=== PATIENT | male | born 1950 | race American Indian/Alaskan Native ===

== ENCOUNTER 2021-02-23 14:10 | Inpatient (IN) | payer OTHER, MEDICARE ==
--- NOTE | 2021-02-23 14:21 | Emergency Department Report ---
ED Neuro Deficit HPI - General Stated Complaint: POSS STROKE Time Seen by Provider: 02/23/21 14:16 - History of Present Illness Initial Comments: Patient was brought in by ambulance for a stroke alert. He was at home. He was sitting outside. Family noticed that he was sitting in the yard and was confused. He was looking downward. They noticed that he had slurred speech. EMS was called. EMS states that the patient was clearly altered with slurred speech at that time. He could not even complete features of an NIH score. During transport, the patient improved. Upon arrival, his symptoms have abated. EMS reports his NIH score is 0 at this time. They did report that he was initially hypertensive but his blood pressures also improved. Patient actually has no recollection of the events. He states that he just felt weak. He states that he also got dizzy. There was no head trauma. No chest pain. There is no shortness of breath. He does not feel weak or dizzy at this time. He has never had symptoms of this nature before. - Related Data Allergies/Adverse Reactions: Allergies Allergy/AdvReac Type Severity Reaction Status Date / Time No Known Allergies Allergy Unverified 02/23/21 15:13 ED Review of Systems ROS: Stated complaint: POSS STROKE Other details as noted in HPI Comment: All other systems reviewed and negative Constitutional: denies: fever Eyes: denies: eye pain ENT: denies: throat pain Respiratory: denies: cough Cardiovascular: denies: chest pain Endocrine: denies: unexplained weight loss Gastrointestinal: denies: abdominal pain Genitourinary: denies: dysuria Musculoskeletal: denies: back pain Neurological: as per HPI. denies: headache Hematological/Lymphatic: denies: easy bruising ED Past Medical Hx - Family History Family history: hypertension ED Neuro Physical Exam - General Limitations: No Limitations, Other ( Pulse ox was noted per EMS and normal. Patient was not hypoxic.) General appearance: alert, in no apparent distress Suspected Stroke: No - Head Head exam: Present: atraumatic, normocephalic, normal inspection - Eye Eye exam: Present: normal appearance, PERRL, EOMI. Absent: scleral icterus - ENT ENT exam: Present: normal exam, normal orophraynx, mucous membranes moist, normal external ear exam - Neck Neck exam: Present: normal inspection. Absent: tenderness, meningismus - Respiratory Respiratory exam: Present: normal lung sounds bilaterally. Absent: respiratory distress - Cardiovascular Cardiovascular Exam: Present: regular rate, normal rhythm - GI/Abdominal GI/Abdominal exam: Present: soft, other ( Ventral hernia is noted there is nontender and easily reducible). Absent: distended, tenderness - Extremities Exam Extremities exam: Present: normal capillary refill. Absent: pedal edema - Back Exam Back exam: Absent: CVA tenderness (R), CVA tenderness (L) - Neurological Exam Neurological exam: Present: alert, oriented X3, CN II-XII intact, reflexes normal, other ( NIH score is 0.). Absent: motor sensory deficit - NIHSS Assessment Interval: Baseline 1a. Level of Consciousness: alert/keenly responsive 1b. LOC Questions: answers both correctly 1c. LOC Commands: performs tasks correctly 2. Best Gaze: normal 3. Visual: no visual loss 4. Facial Palsy: normal symmetrical movement 5b. Motor Arm Right: no drift 5a. Motor Arm Left: no drift 6a. Motor Leg Left: no drift 6b. Motor Leg Right: no drift 7. Limb Ataxia: absent 8. Sensory: normal 9. Best Language: no aphasia 10. Dysarthria: normal 11. Extinction/Inattention: no abnormality Total Score: 0 Stroke Severity: No Stroke Symptoms - Psychiatric Psychiatric exam: Present: normal affect, normal mood - Skin Skin exam: Present: warm, dry ED Course Vital Signs 02/23/21 02/23/21 02/23/21 14:56 15:01 15:15 Temperature Pulse Rate 71 81 74 Respiratory 14 14 Rate Blood Pressure 113/61 115/65 O2 Sat by Pulse 98 95 Oximetry 02/23/21 02/23/21 15:20 15:22 Temperature 97.6 F Pulse Rate Respiratory Rate Blood Pressure O2 Sat by Pulse 98 Oximetry - Reevaluation(s) Reevaluation #1: 02/23/21 14:18 1405-EMS was met upon arrival. Patient has no neurologic deficit at this time. He would not be a candidate for thrombolytic therapy as his symptoms have completely resolved and his NIH score is 0. He was still taken urgently to CT. Reevaluation #2: 02/23/21 14:41 the water treatment technician called requesting a CT angiogram. She verified that this was req uested by the neurologist. Order was placed. Clinically, patient does not have symptoms consistent with large vessel occlusion. Reevaluation #3: 02/23/21 15:40 Case was discussed with the neurologist and Dr. Limon. Plan is for observation admission and further risk stratification and evaluation. There is no evidence of bleed. - Lab Data Result diagrams: 02/23/21 15:04 Lab Results 02/23/21 Range/Units 15:04 WBC 3.8 L (4.5-11.0) K/mm3 RBC 3.34 L (3.65-5.03) M/mm3 Hgb 10.9 L (11.8-15.2) gm/dl Hct 33.4 L (35.5-45.6) % MCV 100 H (84-94) fl MCH 33 H (28-32) pg MCHC 33 (32-34) % RDW 13.7 (13.2-15.2) % Plt Count 98 L (140-440) K/mm3 Lymph % (Auto) 25.9 (13.4-35.0) % [place] % (Auto) 12.6 H (0.0-7.3) % Eos % (Auto) 0.4 (0.0-4.3) % Baso % (Auto) 0.2 (0.0-1.8) % Lymph # (Auto) 1.0 L (1.2-5.4) K/mm3 [place] # (Auto) 0.5 (0.0-0.8) K/mm3 Eos # (Auto) 0.0 (0.0-0.4) K/mm3 Baso # (Auto) 0.0 (0.0-0.1) K/mm3 Seg Neutrophils % 60.9 (40.0-70.0) % Seg Neutrophils # 2.3 (1.8-7.7) K/mm3 - EKG Data -: EKG Interpreted by Ca EKG shows normal: sinus rhythm Rate: normal Interpretation: no acute changes 02/23/21 15:40 Patient has normal intervals without evidence of ectopy or dysrhythmia. There is no evidence of STEMI. - Radiology Data Radiology results: report reviewed - Medical Decision Making Patient presented with strokelike symptoms. He had resolution of symptoms which would be consistent with TIA. Case has been discussed with the neurologist on-call as well as the hospitalist. They agreed for further observation and restratification. There is no evidence of subdural or epidural hematomas. Patient does not have any evidence of metabolic derangement. Critical Care Time: No Critical care attestation.: If time is entered above; I have spent that time in minutes in the direct care of this critically ill patient, excluding procedure time. ED Disposition Clinical Impression: TIA (transient ischemic attack) Disposition: 09 ADMITTED INPATIENT Is pt being admited?: Yes Does the pt Need Aspirin: No Condition: Stable
--- NOTE | 2021-02-23 15:04 | Consultation ---
History of Present Illness Consult date: 02/23/21 Medications and Allergies Active Meds: Active Medications Sodium Chloride (Nacl 0.9% 1000 Ml) 1,000 mls @ 999 mls/hr IV BOLUS ONE Stop: 02/23/21 15:16 Assessment and Plan [facility] Consult Note # Demographics Consult Type: Acute Stroke Level 1 (0-4.5 hrs) Patient Location: Emergency Room First Name: Jones Last Name: Monica Date of : 1950 Age: 70 Gender: Male Facility: [facility] Time of Initial Page ( Time): 02/23/2021, 14:12 Time of Return Call ( Time): 02/23/2021, 14:13 # HPI History: 70M sat down after seeming normal, then noted to have blank stare, slurred speech. Upon EMS arrival, BP elevated and normal glucose. Speech and other symptoms resolved en route per EMS. He reports having headache, took aleve, then still with headache. Denies prior similar. Denies recent illness or injury. Feels back to normal. # Scores Time of exam and NIHSS ( Time): 02/23/2021, 15:01 Level of Consciousness 1a: [0] = Alert; keenly responsive LOC Questions 1b: [0] = Answers both questions correctly LOC Commands 1c: [0] = Performs both tasks correctly Best Gaze 2: [0] = Normal Visual 3: [0] = No visual loss Facial Palsy 4: [0] = Normal symmetrical movements Motor Arm Left 5a: [0] = No drift Motor Arm Right 5b: [0] = No drift Motor Leg Left 6a: [0] = No drift Motor Leg Right 6b: [0] = No drift Limb Ataxia 7: [0] = Absent Sensory 8: [0] = Normal Best Language 9: [0] = No aphasia Dysarthria 10: [0] = Normal Extinction and Inattention 11: [0] = No abnormality NIHSS Total: 0 # PMH-FH-SH Past Medical History: hypertension # Data Head CT: no bleed preliminarily reviewed by me, please refer to radiology read for official reading # Assessment Impression: Altered Mental Status Transient Ischemic Attack versus seizure, other. The lack of memory for the event favors seizure or syncope over stroke. # Plan Thrombolytic/Intervention: NOT IV Thrombolysis or IA Intervention candidate Thrombolytic Exclusion (< 3 hour window): non-disabling deficit Intraarterial Exclusion: non-disabling Imaging: (urgency: STAT): MRI Brain with AND without contrast Diagnostic Test: EEG Medication: aspirin 81 mg daily Other: I have discussed my recommendations with the referring provider Additional Recommendations: Seizure precautions pending further evaluation, no driving until released by medical provider. Disposition: admit # Logistics Telemedicine: Interactive 2 way audio and visual telecommunication technology was utilized during this visit
--- NOTE | 2021-02-23 15:11 | Cat Scan Report ---
CT head/brain wo con INDICATION: Stroke symptoms. TECHNIQUE: All CT scans at this location are performed using CT dose reduction for ALARA by means of automated e xposure control. COMPARISON: None available. FINDINGS: There is no evidence of hemorrhage, hydrocephalus, brain edema, or mass effect/mass lesion. There is mild global brain atrophy and mild cerebral white matter hypoattenuation suggesting chronic small ves edgar ischemic change. There is no appreciable acute infarct. IMPRESSION: 1. No acute hemorrhage or appreciable acute infarct. Signer Name: Garrick Yanes MD Signed: 02/23/2021 3:07 PM Workstation Name: [id number]
[2021-02-23 15:24] LABS: Basophils % (Auto) 0.2 % (0.0-1.8); Eosinophils % (Auto) 0.4 % (0.0-4.3); Hematocrit 33.4 % (35.5-45.6); Hemoglobin 10.9 gm/dl (11.8-15.2); Lymphocytes % (Auto) 25.9 % (13.4-35.0); Mean Corpuscular HGB Conc 33 % (32-34); Mean Corpuscular Volume 100 fl (84-94); Monocytes # (Auto) 0.5 K/mm3 (0.0-0.8); Monocytes % (Auto) 12.6 % (0.0-7.3); Red Blood Count 3.34 M/mm3 (3.65-5.03); Red Cell Distribution Width 13.7 % (13.2-15.2)
[2021-02-23 15:25] LABS: Platelet Count 98 K/mm3 (140-440)
--- NOTE | 2021-02-23 15:27 | Cat Scan Report ---
CTA HEAD AND NECK WITH CONTRAST HISTORY: Transient ischemic attack COMPARISON: None. TECHNIQUE: All CT scans at this location are performed using CT dose reduction for ALARA by means of automated exposure control.. 3-D/MIP reformats postprocessed. Percentage stenosis is determined by d irect quantitative measurements of diseased internal carotid artery diameter compared with normal dis sally internal carotid artery reference segments or by criteria similar to NASCET where applicable. CONTRAST: 100 ml of Omnipaque 350 FINDINGS: CT HEAD: BRAIN / INTRACRANIAL CONTENTS: No acute hemorrhage, mass effect, midline shift, or hydrocephalus. No appreciable acute large territorial or lacunar infarct. ORBITS: No significant abnormality of visualized orbits. SINUSES / MASTOIDS: No significant abnormality of visualized sinuses and mastoid air cells. CTA HEAD: Intracranial vertebral arteries: Mild atherosclerotic calcifications without significant stenosis. Basilar artery: Mild atherosclerotic calcifications without significant stenosis. Posterior cerebral arteries: No significant abnormality. Intracranial internal carotid arteries: Mild atherosclerotic calcifications without significant steno sis. Anterior cerebral arteries: No significant abnormality. Middle cerebral arteries: No significant abnormality. Dural venous sinuses:Not optimally opacified. No significant abnormality. CTA NECK: Aortic arch: There is 4 vessel branching pattern of the aortic arch. Cervical vertebral arteries: Scattered atherosclerotic calcifications without significant stenosis or acute abnormality. Common carotid arteries: Mild atherosclerotic plaque without significant stenosis. Cervical internal carotid arteries: Atherosclerotic plaque in the proximal cervical internal carotid arteries without flow-limiting stenosis. Additional findings: None. IMPRESSION: 1. No flow-limiting stenosis or large vessel occlusion in the neck or intracranial arteries. Signer Name: Garrick Yanes MD Signed: 02/23/2021 3:22 PM Workstation Name: [id number]
[2021-02-23 15:40] LABS: Calcium 8.6 mg/dL (8.4-10.2)
[2021-02-23 15:46] LABS: INR 1.12 (0.87-1.13)
[2021-02-23 15:47] LABS: Partial Thromboplastin Time 29.4 Sec. (24.2-36.6)
[2021-02-23 15:53] LABS: Thrombin Time 18.1 Sec. (15.1-19.6)
[2021-02-23] MEDS ORDERED: SODIUM CHLORIDE 0.9% 1000 ML 1,000 ML IV ONE (16:00)
[2021-02-23] MEDS ORDERED: METOCLOPRAMIDE 10 MG/2 ML INJ IV PRN (21:01)
[2021-02-23] MEDS ORDERED: HYDROmorphone 1 MG/1 ML INJ IV PRN (21:01)
[2021-02-23] MEDS ORDERED: ACETAMINOPHEN 325 MG TAB PO PRN (21:01)
[2021-02-23] MEDS ORDERED: ONDANSETRON 4 MG/2 ML INJ IV PRN (21:01)
[2021-02-23] MEDS ORDERED: oxyCODONE /ACETAMINOPHEN 5-325MG TAB PO PRN (21:01)
--- NOTE | 2021-02-23 21:01 | History and Physical Report ---
History of Present Illness Date of examination: 02/23/21 Date of admission: 02/23/21 Chief complaint: Note speech and left-sided weakness which lasted for 1 hour History of present illness: 70-year-old -[place] male, very cooperative during my examination appar ently was sitting in the ER and became confused. The family noticed slurred speech and left-sided weakness involving both left upper and left lower extremities. EMS was called. As per EMS patient had slurred speech and left- sided weakness. During transport patient improved. More alert and alert Oriented and also able to move left upper and left lower extremity. During my examination patient was able to tell where he is and able to move all 4 extremities and had a clear speech. No chest pain. No exposure to Covid. Review of Systems ROS: Stated complaint: POSS STROKE Other details as noted in HPI Comment: All other systems reviewed and negative Constitutional: denies: fever Eyes: denies: eye pain ENT: denies: throat pain Respiratory: denies: cough Cardiovascular: denies: chest pain Endocrine: denies: unexplained weight loss Gastrointestinal: denies: abdominal pain Genitourinary: denies: dysuria Musculoskeletal: denies: back pain Neurological: as per HPI. denies: headache Hematological/Lymphatic: denies: easy bruising Past History Past Medical History: hypertension Past Surgical History: No surgical history Social history: lives with family, full code Family history: hypertension Medications and Allergies Allergies Allergy/AdvReac Type Severity Reaction Status Date / Time No Known Allergies Allergy Unverified 02/23/21 15:13 Home Medications Medication Instructions Recorded Confirmed Last Taken Type No Known Home Medications [No 02/23/21 02/23/21 Unknown History Reported Home Medications] Exam - Constitutional Vitals: Temp Pulse Resp BP Pulse Ox 97.6 F 74 14 113/68 97 02/23/21 15:20 02/23/21 15:15 02/23/21 15:15 02/23/21 20:01 02/23/21 20:01 General appearance: Present: no acute distress, well-nourished - EENT Eyes: Present: PERRL ENT: hearing intact, clear oral mucosa - Neck Neck: Present: supple, normal ROM - Respiratory Respiratory effort: normal Respiratory: bilateral: CTA - Cardiovascular Heart rate: 78 Rhythm: regular Heart Sounds: Present: S1 & S2. Absent: rub, click - Extremities Extremities: pulses symmetrical, No edema Peripheral Pulses: within normal limits - Abdominal General gastrointestinal: Present: soft, non-tender, non-distended, normal bowel sounds Male genitourinary: Present: normal - Rectal Rectal Exam: deferred - Integumentary Integumentary: Present: clear, warm, dry - Musculoskeletal Musculoskeletal: gait normal, strength equal bilaterally - Psychiatric Psychiatric: appropriate mood/affect, intact judgment & insight - Neurologic Neurologic: CNII-XII intact, moves all extremities - Allied Health Allied health notes reviewed: nursing, case management HEART Score - HEART Score History: Slightly suspicious Risk factors: 1-2 risk factors Troponin: Troponin T 0.025 ng/mL (0.00-0.029) 02/23/21 15:04 Troponin: < normal limit - Critical Actions Critical Actions: 0-3 pts:0.9-1.7%risk of adverse cardiac event.Candidate for discharge Results - Labs CBC & Chem 7: 02/24/21 05:30 02/24/21 05:28 Labs: Laboratory Last Values WBC 3.8 K/mm3 (4.5-11.0) L 02/23/21 15:04 RBC 3.34 M/mm3 (3.65-5.03) L 02/23/21 15:04 Hgb 10.9 gm/dl (11.8-15.2) L 02/23/21 15:04 Hct 33.4 % (35.5-45.6) L 02/23/21 15:04 MCV 100 fl (84-94) H 02/23/21 15:04 MCH 33 pg (28-32) H 02/23/21 15:04 MCHC 33 % (32-34) 02/23/21 15:04 RDW 13.7 % (13.2-15.2) 02/23/21 15:04 Plt Count 98 K/mm3 (140-440) L 02/23/21 15:04 Lymph % (Auto) 25.9 % (13.4-35.0) 02/23/21 15:04 [place] % (Auto) 12.6 % (0.0-7.3) H 02/23/21 15:04 Eos % (Auto) 0.4 % (0.0-4.3) 02/23/21 15:04 Baso % (Auto) 0.2 % (0.0-1.8) 02/23/21 15:04 Lymph # (Auto) 1.0 K/mm3 (1.2-5.4) L 02/23/21 15:04 [place] # (Auto) 0.5 K/mm3 (0.0-0.8) 02/23/21 15:04 Eos # (Auto) 0.0 K/mm3 (0.0-0.4) 02/23/21 15:04 Baso # (Auto) 0.0 K/mm3 (0.0-0.1) 02/23/21 15:04 Seg Neutrophils % 60.9 % (40.0-70.0) 02/23/21 15:04 Seg Neutrophils # 2.3 K/mm3 (1.8-7.7) 02/23/21 15:04 PT 15.0 Sec. (12.2-14.9) H 02/23/21 15:04 INR 1.12 (0.87-1.13) 02/23/21 15:04 APTT 29.4 Sec. (24.2-36.6) 02/23/21 15:04 Thrombin Time 18.1 Sec. (15.1-19.6) 02/23/21 15:04 Sodium 130 mmol/L (137-145) L 02/23/21 15:04 Potassium 4.5 mmol/L (3.6-5.0) 02/23/21 15:04 Chloride 60.0 mmol/L (98-107) L 02/23/21 15:04 Carbon Dioxide 14 mmol/L (22-30) L 02/23/21 15:04 Anion Gap 8 mmol/L 02/23/21 15:04 BUN 37 mg/dL (9-20) H 02/23/21 15:04 Creatinine 3.0 mg/dL (0.8-1.3) H 02/23/21 15:04 Estimated GFR 25 ml/min 02/23/21 15:04 BUN/Creatinine Ratio 12 % 02/23/21 15:04 Glucose 92 mg/dL (75-100) 02/23/21 15:04 Calcium 8.6 mg/dL (8.4-10.2) 02/23/21 15:04 Troponin T 0.025 ng/mL (0.00-0.029) 02/23/21 15:04 Short CBC 02/23/21 02/24/21 Range/Units 15:04 05:30 WBC 3.8 L 3.8 L (4.5-11.0) K/mm3 Hgb 10.9 L 11.5 L (11.8-15.2) gm/dl Hct 33.4 L 34.8 L (35.5-45.6) % Plt Count 98 L 78 L (140-440) K/mm3 BMP 02/23/21 02/24/21 15:04 05:28 Sodium 130 L 135 L Potassium 4.5 4.3 Chloride 60.0 L 98.9 Carbon Dioxide 14 L 18 L BUN 37 H 45 H Creatinine 3.0 H 3.6 H Glucose 92 80 Calcium 8.6 8.4 Cardiac Enzymes 02/23/21 Range/Units 15:04 Troponin T 0.025 (0.00-0.029) ng/mL Liver Function 02/24/21 Range/Units 05:28 Total Bilirubin 1.00 (0.1-1.2) mg/dL AST 30 (5-40) units/L ALT 15 (7-56) units/L Alkaline Phosphatase 86 (35-129) units/L Albumin 4.1 (3.9-5) g/dL - Imaging and Cardiology EKG: report reviewed (Sinus rhythm no acute ST-T wave changes) CT Scan - head: report reviewed Imaging and Cardiology: Head CT No acute hemorrhage or appreciable acute infarct Head and neck CTA No flow-limiting stenosis or large vessel occlusion in the neck or intracranial arteries Assessment and Plan Advance Directives: Yes (Full code) VTE prophylaxis?: Chemical Plan of care discussed with patient/family: Yes - Patient Problems (1) TIA (transient ischemic attack) Current Visit: Yes Status: Acute Plan to address problem: History suggests a classic transient ischemic attack Echocardiogram ordered for ejection fraction and valve function and rule out any thrombus Carotid duplex scan was canceled because the head CT and neck CT were done which were normal MRI is not necessary because the head CT and neck CT are normal and the symptoms resolved within an hour Patient can be discharged tomorrow after the echocardiogram Needs renal work-up as outpatient (2) Acute kidney injury superimposed on CKD Current Visit: Yes Status: Acute Plan to address problem: Probably underlying CKD IV fluids Nephrology consult (3) Hyponatremia Current Visit: Yes Status: Acute Plan to address problem: IV fluids for now (4) Anemia Current Visit: Yes Status: Chronic Qualifiers: Anemia type: unspecified type Qualified Code(s): D64.9 - Anemia, unspecified Plan to address problem: Anemia work-up and CKD may be contributory (5) DVT prophylaxis Current Visit: Yes Status: Acute Plan to address problem: On heparin and GI prophylaxis
[2021-02-23] MEDS ORDERED: SODIUM CHLORIDE 0.9% 1000 ML 1,000 ML IV SCH (21:15)
[2021-02-24] MEDS: FAMOTIDINE 20 MG TAB PO SCH ×3 (01:00→23:04)
[2021-02-24] MEDS: HEPARIN 5,000 UNIT/1 ML VIAL SUB-Q SCH ×3 (01:00→23:05)
[2021-02-24 05:49] LABS: Basophils % (Auto) 0.5 % (0.0-1.8); Eosinophils % (Auto) 1.1 % (0.0-4.3); Hematocrit 34.8 % (35.5-45.6); Hemoglobin 11.5 gm/dl (11.8-15.2); Lymphocytes % (Auto) 26.7 % (13.4-35.0); Mean Corpuscular HGB Conc 33 % (32-34); Mean Corpuscular Volume 99 fl (84-94); Monocytes # (Auto) 0.6 K/mm3 (0.0-0.8); Monocytes % (Auto) 15.3 % (0.0-7.3); Red Blood Count 3.52 M/mm3 (3.65-5.03); Red Cell Distribution Width 13.3 % (13.2-15.2)
[2021-02-24 05:55] LABS: Platelet Count 78 K/mm3 (140-440)
[2021-02-24 06:15] LABS: Albumin 4.1 g/dL (3.9-5); Calcium 8.4 mg/dL (8.4-10.2)
--- NOTE | 2021-02-24 07:43 | Consultation ---
History of Present Illness Consult date: 02/24/21 Reason for Consult: Episode of left side weakness and slurred speech lasted one hour yesterday History of present illness: Note speech and left-sided weakness which lasted for 1 hour History of present illness: 70-year-old -[place] male, very cooperative during my examination apparently was sitting in the ER and became confused? story is not clear and pt. not recall event he is doing well and wants to go home denied any event before of altered mental status or seizure or CVA The family noticed slurred speech and left-sided weakness involving both left upper and left lower extremities. EMS was called. As per EMS patient had slurred speech and left-sided weakness. During transport patient improved. More alert and alert Oriented and also able to move left upper and left lower extremity. -Today NIH#0 -CT brain and CTA brain and neck is unremarkable -according to pt. he drinks average 2-3 beers daily . Review of Systems ROS: Stated complaint: POSS STROKE Other details as noted in HPI Comment: All other systems reviewed and negative Constitutional: denies: fever Eyes: denies: eye pain ENT: denies: throat pain Respiratory: denies: cough Cardiovascular: denies: chest pain Endocrine: denies: unexplained weight loss Gastrointestinal: denies: abdominal pain Genitourinary: denies: dysuria Musculoskeletal: denies: back pain Neurological: as per HPI. denies: headache Hematological/Lymphatic: denies: easy bruising Past History Past Medical History: hypertension Past Surgical History: No surgical history Social history: lives with family, full code Family history: hypertension Medications and Allergies Allergies Allergy/AdvReac Type Severity Reaction Status Date / Time No Known Allergies Allergy Unverified 02/23/21 15:13 Home Medications Medication Instructions Recorded Confirmed Last Taken Type No Known Home Medications [No 02/23/21 02/23/21 Unknown History Reported Home Medications] Past History Past Medical History: hypertension Past Surgical History: No surgical history Social history: lives with family, full code Family history: hypertension Medications and Allergies Allergies Allergy/AdvReac Type Severity Reaction Status Date / Time No Known Allergies Allergy Unverified 02/23/21 15:13 Home Medications Medication Instructions Recorded Confirmed Last Taken Type No Known Home Medications [No 02/23/21 02/23/21 Unknown History Reported Home Medications] Active Meds: Active Medications Acetaminophen (Acetaminophen 325 Mg Tab) 650 mg PO Q4H PRN PRN Reason: Pain MILD(1-3)/Fever >100.5/[place] Famotidine (Famotidine 20 Mg Tab) 20 mg PO BID [facility] Last Admin: 02/24/21 01:00 Dose: 20 mg Documented by: Heparin Sodium (Porcine) (Heparin 5,000 Unit/1 Ml Vial) 5,000 unit SUB-Q Q12HR [facility] Last Admin: 02/24/21 01:00 Dose: 5,000 unit Documented by: Hydromorphone HCl (Hydromorphone 1 Mg/1 Ml Inj) 0.5 mg IV Q3H PRN PRN Reason: Pain , Severe (7-10) Sodium Chloride (Nacl 0.9% 1000 Ml) 1,000 mls @ 75 mls/hr IV DIRECT [facility] Metoclopramide HCl (Metoclopramide 10 Mg/2 Ml Inj) 10 mg IV Q6H PRN PRN Reason: Nausea And Vomiting Ondansetron HCl (Ondansetron 4 Mg/2 Ml Inj) 4 mg IV Q8H PRN PRN Reason: Nausea And Vomiting Oxycodone/Acetaminophen (Oxycodone /Acetaminophen 5-325mg Tab) 1 tab PO Q6H PRN PRN Reason: Pain, Moderate (4-6) Sodium Chloride (Sodium Chloride 0.9% 10 Ml Flush Syringe) 10 ml IV BID [facility] Last Admin: 02/24/21 01:00 Dose: 10 ml Documented by: Sodium Chloride (Sodium Chloride 0.9% 10 Ml Flush Syringe) 10 ml IV PRN PRN PRN Reason: LINE FLUSH Physical Examination - Vital Signs Vital Signs: Vital Signs Pulse 71 02/23/21 14:56 - Constitutional General appearance: comfortable - EENT EENT: Present: PERRL, mucous membranes moist - Respiratory Respiratory: Present: chest non-tender, lungs clear, rhonchi - Cardiovascular Cardiovascular: Present: regular rate, normal S1, normal S2 Extremities: Present: no peripheral edema bilatateraly, no clubbing, cyanosis - Gastrointestinal Gastrointestinal: Present: normoactive bowel sounds - Integumentary Integumentary: Present: normal - Neurologic Cranial nerve examination: PERRL, EOMI, VFF, intact Speech examination: intact Sensorimotor examination: intact Detailed motor examination: grossly full strength in Detailed sensory examination: intact - Level of Consciousness 1a. Level of Consciousness: alert/keenly responsive - LOC Questions 1b. LOC Questions: answers both correctly - LOC Command 1c. LOC Commands: performs tasks correctly - Best Gaze 2. Best Gaze: normal - Visual 3. Visual: no visual loss - Facial Palsy 4. Facial Palsy: normal symmetrical movement - Motor Arm 5a. Motor Arm Left: no drift 5b. Motor Arm Right: no drift - Motor Leg 6a. Motor Leg Left: no drift 6b. Motor Leg Right: no drift - Limb Ataxia 7. Limb Ataxia: absent - Sensory 8. Sensory: normal - Best Language 9. Best Language: no aphasia - Dysarthria 10. Dysarthria: normal - Extinction and Inattention 11. Extinction/Inattention: no abnormality - Scoring Total Score: 0 Stroke Severity: No Stroke Symptoms Results - Laboratory Findings CBC and BMP: 02/24/21 05:30 02/24/21 05:28 Abnormal Lab Findings: Abnormal Labs 02/23/21 02/23/21 02/23/21 15:04 15:04 15:04 WBC 3.8 L RBC 3.34 L Hgb 10.9 L Hct 33.4 L MCV 100 H MCH 33 H Plt Count 98 L [place] % (Auto) 12.6 H Lymph # (Auto) 1.0 L PT 15.0 H Sodium 130 L Chloride 60.0 L Carbon Dioxide 14 L BUN 37 H Creatinine 3.0 H 02/24/21 02/24/21 05:28 05:30 WBC 3.8 L RBC 3.52 L Hgb 11.5 L Hct 34.8 L MCV 99 H MCH 33 H Plt Count 78 L [place] % (Auto) 15.3 H Lymph # (Auto) 1.0 L PT Sodium 135 L Chloride Carbon Dioxide 18 L BUN 45 H Creatinine 3.6 H Assessment and Plan Assessment and Plan Advance Directives: Yes (Full code) VTE prophylaxis?: Chemical Plan of care discussed with patient/family: Yes - Patient Problems # TIA vs seizure -pt. is with episode of confusion and or left side weakness -pt. not recall event -today NIH is #0 -CT brain and CTA brain and neck is unremarkable -MRI brain is pending -EEG is pending -Start on ASA 325 mg daily and Lipitor 40 mg -LDL#145 -Seizure precaution -Ativan 1 mg prn for seizure -cardiac monitering -echo is pending # Acute kidney injury superimposed on CKD Probably underlying CKD IV fluids Nephrology consult -BUN/Cr#37/3 # Hx of daily alcohol intake -Average 2-3 beers a day as pt. admitted -Dt precaution -Thiamin 100 mg Iv daily X3 days # Hyponatremia IV fluids for now -Na#130 #Anemia Anemia work-up and CKD may be contributory # DVT prophylaxis On heparin and GI prophylaxis PLAN 1- ASA 325 mg daily 2- Lipitor 40 mg daily 3- Stop alcohol 4- Monitor BP <150/80 after 24 hours 5- LDL<70 started on lipitor 6- Thiamin and DT precaution 7- Seizure precaution 8- MRI brain WO Gd 9- EEG findings D/W pt.
[2021-02-24 08:36] LABS: % Iron Saturation 39.55 %
--- NOTE | 2021-02-24 08:38 | Progress Note ---
Assessment and Plan Assessment and plan: (1) TIA (transient ischemic attack) Current Visit: Yes Status: Acute Plan to address problem: History suggests a classic transient ischemic attack Echocardiogram ordered for ejection fraction and valve function and rule out any thrombus Carotid duplex scan was canceled because the head CT and neck CT were done which were normal MRI is not necessary because the head CT and neck CT are normal and the symptoms resolved within an hour Patient can be discharged tomorrow after the echocardiogram Needs renal work-up as outpatient (2) Acute kidney injury superimposed on CKD Current Visit: Yes Status: Acute Plan to address problem: Probably underlying CKD IV fluids Nephrology consult (3) Hyponatremia Current Visit: Yes Status: Acute Plan to address problem: IV fluids for now (4) Anemia Current Visit: Yes Status: Chronic Qualifiers: Anemia type: unspecified type Qualified Code(s): D64.9 - Anemia, unspecified Plan to address problem: Anemia work-up and CKD may be contributory (5) DVT prophylaxis Current Visit: Yes Status: Acute Plan to address problem: On heparin and GI prophylaxis 02/24 -Patient was admitted for TIA. CT head, CTA head and neck was unremarkable. MRI head, and echo is pending -Neurology consult appreciated -Hyponatremia is improving -Acute on chronic CKD; nephrology consulted -Metabolic acidosis; improving -Anemia; likely due to CKD. H&H stable, no bleeding History Interval history: Patient was seen and evaluated this morning Left-sided weakness resolved Hospitalist Physical - Physical exam Narrative exam: Not in cardiopulmonary distress. The patient appeared well nourished and normally developed. Vital signs as documented. Head exam is unremarkable. No scleral icterus . Neck is without jugular venous distension, thyromegaly, or carotid bruits. Lungs are clear to auscultation. Cardiac exam reveals regular rate and Rhythm. Abdominal exam reveals normal bowel sounds, nontender, no organomegaly. Extremities are nonedematous and both femoral and pedal pulses are normal. INSPECTOR MECHANICAL: Alert and oriented 3. No focal weakness. - Constitutional Vitals: Temp Pulse Resp BP Pulse Ox 97.6 F 74 18 119/74 98 02/23/21 15:20 02/23/21 15:15 02/23/21 21:07 02/24/21 06:01 02/24/21 06:01 General appearance: Present: no acute distress, well-nourished HEART Score - HEART Score Risk factors: 1-2 risk factors Troponin: Troponin T 0.025 ng/mL (0.00-0.029) 02/23/21 15:04 Troponin: < normal limit - Critical Actions Critical Actions: 0-3 pts:0.9-1.7%risk of adverse cardiac event.Candidate for discharge Results - Labs CBC & Chem 7: 02/24/21 05:30 02/24/21 05:28 Labs: Laboratory Last Values WBC 3.8 K/mm3 (4.5-11.0) L 02/24/21 05:30 RBC 3.52 M/mm3 (3.65-5.03) L 02/24/21 05:30 Hgb 11.5 gm/dl (11.8-15.2) L 02/24/21 05:30 Hct 34.8 % (35.5-45.6) L 02/24/21 05:30 MCV 99 fl (84-94) H 02/24/21 05:30 MCH 33 pg (28-32) H 02/24/21 05:30 MCHC 33 % (32-34) 02/24/21 05:30 RDW 13.3 % (13.2-15.2) 02/24/21 05:30 Plt Count 78 K/mm3 (140-440) L 02/24/21 05:30 Lymph % (Auto) 26.7 % (13.4-35.0) 02/24/21 05:30 [place] % (Auto) 15.3 % (0.0-7.3) H 02/24/21 05:30 Eos % (Auto) 1.1 % (0.0-4.3) 02/24/21 05:30 Baso % (Auto) 0.5 % (0.0-1.8) 02/24/21 05:30 Lymph # (Auto) 1.0 K/mm3 (1.2-5.4) L 02/24/21 05:30 [place] # (Auto) 0.6 K/mm3 (0.0-0.8) 02/24/21 05:30 Eos # (Auto) 0.0 K/mm3 (0.0-0.4) 02/24/21 05:30 Baso # (Auto) 0.0 K/mm3 (0.0-0.1) 02/24/21 05:30 Seg Neutrophils % 56.4 % (40.0-70.0) 02/24/21 05:30 Seg Neutrophils # 2.2 K/mm3 (1.8-7.7) 02/24/21 05:30 PT 15.0 Sec. (12.2-14.9) H 02/23/21 15:04 INR 1.12 (0.87-1.13) 02/23/21 15:04 APTT 29.4 Sec. (24.2-36.6) 02/23/21 15:04 Thrombin Time 18.1 Sec. (15.1-19.6) 02/23/21 15:04 Sodium 135 mmol/L (137-145) L 02/24/21 05:28 Potassium 4.3 mmol/L (3.6-5.0) 02/24/21 05:28 Chloride 98.9 mmol/L (98-107) 02/24/21 05:28 Carbon Dioxide 18 mmol/L (22-30) L 02/24/21 05:28 Anion Gap 22 mmol/L 02/24/21 05:28 BUN 45 mg/dL (9-20) H 02/24/21 05:28 Creatinine 3.6 mg/dL (0.8-1.3) H 02/24/21 05:28 Estimated GFR 20 ml/min 02/24/21 05:28 BUN/Creatinine Ratio 13 % 02/24/21 05:28 Glucose 80 mg/dL (75-100) 02/24/21 05:28 Calcium 8.4 mg/dL (8.4-10.2) 02/24/21 05:28 Total Bilirubin 1.00 mg/dL (0.1-1.2) 02/24/21 05:28 AST 30 units/L (5-40) 02/24/21 05:28 ALT 15 units/L (7-56) 02/24/21 05:28 Alkaline Phosphatase 86 units/L (35-129) 02/24/21 05:28 Troponin T 0.025 ng/mL (0.00-0.029) 02/23/21 15:04 Total Protein 7.9 g/dL (6.3-8.2) 02/24/21 05:28 Albumin 4.1 g/dL (3.9-5) 02/24/21 05:28 Albumin/Globulin Ratio 1.1 % 02/24/21 05:28 Active Medications - Current Medications Current Medications: Generic Name Dose Route Start Last Admin Trade Name Freq PRN Reason Stop Dose Admin Acetaminophen 650 mg 02/23/21 21:01 Acetaminophen 325 Mg Tab PO Q4H PRN Pain MILD(1-3)/Fever >100.5/[place] Aspirin 325 mg 02/24/21 10:00 Aspirin Ec 325 Mg Tab PO QDAY [facility] Atorvastatin Calcium 40 mg 02/24/21 22:00 Atorvastatin 40 Mg Tab PO QHS BRIAN Famotidine 20 mg 02/23/21 22:00 02/24/21 01:00 Famotidine 20 Mg Tab PO 20 mg BID BRIAN Administration Heparin Sodium (Porcine) 5,000 unit 02/23/21 22:00 02/24/21 01:00 Heparin 5,000 Unit/1 Ml Vial SUB-Q 5,000 unit Q12HR BRIAN Administration Hydromorphone HCl 0.5 mg 02/23/21 21:01 Hydromorphone 1 Mg/1 Ml Inj IV Q3H PRN Pain , Severe (7-10) Sodium Chloride 1,000 mls @ 75 mls/hr 02/23/21 21:15 Nacl 0.9% 1000 Ml IV DIRECT BRIAN Metoclopramide HCl 10 mg 02/23/21 21:01 Metoclopramide 10 Mg/2 Ml Inj IV Q6H PRN Nausea And Vomiting Ondansetron HCl 4 mg 02/23/21 21:01 Ondansetron 4 Mg/2 Ml Inj IV Q8H PRN Nausea And Vomiting Oxycodone/Acetaminophen 1 tab 02/23/21 21:01 Oxycodone /Acetaminophen 5-325mg Tab PO Q6H PRN Pain, Moderate (4-6) Sodium Chloride 10 ml 02/23/21 22:00 02/24/21 01:00 Sodium Chloride 0.9% 10 Ml Flush Syringe IV 10 ml BID BRIAN Administration Sodium Chloride 10 ml 02/23/21 21:01 Sodium Chloride 0.9% 10 Ml Flush Syringe IV PRN PRN LINE FLUSH
[2021-02-24 08:48] LABS: Chol/HDL Ratio 3.7 %
--- NOTE | 2021-02-24 09:34 | Consultation ---
History of Present Illness - Reason for Consult Consult date: 02/24/21 acute renal failure - History of Present Illness 70 year old M admitted with confusion, slurred speech and left sided weakness. Pt has also been found to have renal failure. He denies CP, SHOB or covid exposure. ROS: As in HPI otherwise 12 point review of systems -ve Past History Past Medical History: hypertension Past Surgical History: No surgical history Social history: lives with family, full code Family history: hypertension Medications and Allergies Allergies Allergy/AdvReac Type Severity Reaction Status Date / Time No Known Allergies Allergy Unverified 02/23/21 15:13 Home Medications Medication Instructions Recorded Confirmed Last Taken Type No Known Home Medications [No 02/23/21 02/23/21 Unknown History Reported Home Medications] Active Meds: Active Medications Acetaminophen (Acetaminophen 325 Mg Tab) 650 mg PO Q4H PRN PRN Reason: Pain MILD(1-3)/Fever >100.5/[place] Aspirin (Aspirin Ec 325 Mg Tab) 325 mg PO QDAY [facility] Atorvastatin Calcium (Atorvastatin 40 Mg Tab) 40 mg PO QHS [facility] Famotidine (Famotidine 20 Mg Tab) 20 mg PO BID [facility] Last Admin: 02/24/21 01:00 Dose: 20 mg Documented by: Heparin Sodium (Porcine) (Heparin 5,000 Unit/1 Ml Vial) 5,000 unit SUB-Q Q12HR [facility] Last Admin: 02/24/21 01:00 Dose: 5,000 unit Documented by: Hydromorphone HCl (Hydromorphone 1 Mg/1 Ml Inj) 0.5 mg IV Q3H PRN PRN Reason: Pain , Severe (7-10) Sodium Chloride (Nacl 0.9% 1000 Ml) 1,000 mls @ 75 mls/hr IV DIRECT [facility] Metoclopramide HCl (Metoclopramide 10 Mg/2 Ml Inj) 10 mg IV Q6H PRN PRN Reason: Nausea And Vomiting Ondansetron HCl (Ondansetron 4 Mg/2 Ml Inj) 4 mg IV Q8H PRN PRN Reason: Nausea And Vomiting Oxycodone/Acetaminophen (Oxycodone /Acetaminophen 5-325mg Tab) 1 tab PO Q6H PRN PRN Reason: Pain, Moderate (4-6) Sodium Chloride (Sodium Chloride 0.9% 10 Ml Flush Syringe) 10 ml IV BID [facility] Last Admin: 02/24/21 01:00 Dose: 10 ml Documented by: Sodium Chloride (Sodium Chloride 0.9% 10 Ml Flush Syringe) 10 ml IV PRN PRN PRN Reason: LINE FLUSH Exam - Vital Signs Vital signs: Vital Signs Pulse 71 02/23/21 14:56 - Physical Exam Narrative exam: General appearance: Present: no acute distress, well-nourished - EENT Eyes: Present: PERRL ENT: hearing intact, clear oral mucosa - Neck Neck: Present: supple, normal ROM - Respiratory Respiratory effort: normal Respiratory: bilateral: CTA - Cardiovascular Heart rate: 78 Rhythm: regular Heart Sounds: Present: S1 & S2. Absent: rub, click - Extremities Extremities: pulses symmetrical, No edema Peripheral Pulses: within normal limits - Abdominal General gastrointestinal: Present: soft, non-tender, non-distended, normal bowel sounds Male genitourinary: Present: normal - Rectal Rectal Exam: deferred - Integumentary Integumentary: Present: clear, warm, dry - Musculoskeletal Musculoskeletal: gait normal, strength equal bilaterally - Psychiatric Psychiatric: appropriate mood/affect, intact judgment & insight - Neurologic Neurologic: CNII-XII intact, moves all extremities - Allied Health Allied health notes reviewed: nursing, case management Results - Lab Results 02/24/21 05:30 02/24/21 05:28 Most recent lab results Calcium 8.4 mg/dL (8.4-10.2) 02/24/21 05:28 Assessment and Plan (1) TIA (transient ischemic attack) (2) Acute kidney injury, Unknown CKD (3) Hyponatremia (4) Anemia (5) HTN -Check urine studies, Renal US -Continue IVFs -Check CK level, BNP -Renally dose all meds -Avoid Nephrotoxic meds -Strict I/Os
--- NOTE | 2021-02-24 10:22 | XRay Report ---
CHEST 1 VIEW 02/24/2021 9:43 AM INDICATION / CLINICAL INFORMATION: congestion. COMPARISON: None available. FINDINGS: SUPPORT DEVICES: None. HEART / MEDIASTINUM: No significant abnormality. LUNGS / PLEURA: Suboptimal inspiration with low lung volumes and bibasilar atelectasis. No pneumothor ax. ADDITIONAL FINDINGS: No significant additional findings. IMPRESSION: 1. Bibasilar atelectasis. Signer Name: Luna Gutierrez MD Signed: 02/24/2021 10:17 AM Workstation Name: [id number]
[2021-02-24] MEDS ORDERED: LORazepam 2 MG/ML VIAL IV PRN (10:31)
[2021-02-24] MEDS: THIAMINE 100 MG in SODIUM CHLORIDE 0.9% 50 ML IV SCH (12:45)
[2021-02-24] MEDS: ASPIRIN EC 325 MG TAB PO SCH (12:45)
[2021-02-24 19:54] LABS: Bilirubin,Urine NEG (Negative); Blood,Urine SM (Negative); Color,Urine Yellow (Yellow); Protein,Urine <15 mg/dL mg/dL (Negative)
[2021-02-24 20:01] LABS: Creatinine,Urine 169.9 mg/dL (0.1-20.0); Protein/Creatinine Ratio,Urine 0.17
[2021-02-25 06:24] LABS: Calcium 8.9 mg/dL (8.4-10.2)
[2021-02-25 06:37] LABS: Basophils % (Auto) 0.7 % (0.0-1.8); Eosinophils # (Auto) 0.1 K/mm3 (0.0-0.4); Eosinophils % (Auto) 2.5 % (0.0-4.3); Hematocrit 35.8 % (35.5-45.6); Hemoglobin 11.8 gm/dl (11.8-15.2); Lymphocytes # (Auto) 1.3 K/mm3 (1.2-5.4); Lymphocytes % (Auto) 33.1 % (13.4-35.0); Mean Corpuscular HGB Conc 33 % (32-34); Mean Corpuscular Volume 98 fl (84-94); Monocytes # (Auto) 0.6 K/mm3 (0.0-0.8); Monocytes % (Auto) 15.9 % (0.0-7.3); Red Blood Count 3.64 M/mm3 (3.65-5.03); Red Cell Distribution Width 13.6 % (13.2-15.2)
[2021-02-25 06:41] LABS: Platelet Count 78 K/mm3 (140-440)
--- NOTE | 2021-02-25 08:58 | Magnetic Resonance Report ---
MRI BRAIN 02/25/2021 INDICATION / CLINICAL INFORMATION: CVA, lt sided weakness. TECHNIQUE: Multiplanar, multisequence MR images of the brain were obtained. COMPARISON: None available. FINDINGS: BRAIN / INTRACRANIAL CONTENTS: Unenhanced MR images of the brain demonstrate no evidence of acute abn ormality. Ventricles and sulci are slightly prominent in size, consistent with age-related atrophic change. Extensive chronic microangiopathic white matter T2 weighted hyperintensities are present in the periv entricular and deep white matter of cerebral hemispheres. There is no evidence of acute ischemic injury, hemorrhage, or mass. There are no abnormal extra-axial fluid collections. EXTRACRANIAL: Unremarkable CRANIOCERVICAL JUNCTION: No significant abnormality. VASCULAR FLOW-VOIDS: No significant abnormality. IMPRESSION: No acute abnormality. Chronic and age-related changes. Signer Name: Galdino Newell MD Signed: 02/25/2021 8:54 AM Workstation Name: [id number]
[2021-02-25] MEDS: HEPARIN 5,000 UNIT/1 ML VIAL SUB-Q SCH (09:56)
[2021-02-25] MEDS: ASPIRIN EC 325 MG TAB PO SCH (09:57)
[2021-02-25] MEDS ORDERED: FAMOTIDINE 10 MG TAB PO SCH (10:00)
--- NOTE | 2021-02-25 10:12 | Ultrasound Report ---
ULTRASOUND RENAL INDICATION / CLINICAL INFORMATION: josh. COMPARISON: None available. FINDINGS: RIGHT KIDNEY: Length = 10.6 cm. - Echogenicity: Normal. - Cortical Thickness: Normal. - Hydronephrosis: None. - Cyst or mass: No significant abnormality. - Stones: None seen. LEFT KIDNEY: Length = 11.1 cm. - Echogenicity: Normal. - Cortical Thickness: Normal. - Hydronephrosis: None. - Cyst or mass: No significant abnormality. - Stones: None seen. URINARY BLADDER: No significant abnormality. FREE FLUID: None. ADDITIONAL FINDINGS: None. IMPRESSION: 1. No significant abnormality. Signer Name: Tito Fenton MD Signed: 02/25/2021 10:08 AM Workstation Name: [email or web address]
[2021-02-25] MEDS: THIAMINE 100 MG in SODIUM CHLORIDE 0.9% 50 ML IV SCH (10:13)
--- NOTE | 2021-02-25 10:31 | Progress Note ---
Assessment and Plan Assessment TIA (transient ischemic attack) Acute kidney injury, Unknown CKD Hyponatremia Anemia Hypertension Plan -Renal labs reviewed. Serum creatinine trend down to 1.5 today, yesterday's was 1.6 -Renal ultrasound reviewed- No Hydronephrosis noted -On NS@ 75 ml/hr -Renally dose all medications -Avoid nephrotoxic agents -Strict I/O's monitoring -Obtain daily weights -Continue to monitor renal function -Plan of care reviewed by Dr. ePrla Subjective Date of service: 02/25/21 Principal diagnosis: ARF Interval history: Patient seen lying in bed in E.R 21, awaiting bed placement upstairs. Sleeping but easily aroused. Objective - Vital Signs Vital signs: Vital Signs - 12hr 02/24/21 02/25/21 02/25/21 23:01 00:01 01:00 Pulse Rate 74 65 74 Respiratory 15 20 19 Rate Blood Pressure 142/69 147/73 Blood Pressure [Left] O2 Sat by Pulse 97 99 99 Oximetry 02/25/21 02/25/21 02/25/21 02:01 03:01 04:01 Pulse Rate 73 64 65 Respiratory 20 18 22 Rate Blood Pressure 148/73 143/75 159/80 Blood Pressure [Left] O2 Sat by Pulse 98 98 99 Oximetry 02/25/21 02/25/21 02/25/21 05:00 06:00 07:01 Pulse Rate 63 63 65 Respiratory 14 25 H 18 Rate Blood Pressure 161/82 146/74 159/81 Blood Pressure [Left] O2 Sat by Pulse 99 97 99 Oximetry 02/25/21 02/25/21 02/25/21 07:41 08:14 09:00 Pulse Rate 67 Respiratory 16 Rate Blood Pressure 159/81 161/89 Blood Pressure 159/81 [Left] O2 Sat by Pulse 99 99 98 Oximetry - General Appearance General appearance: well-developed, appears stated age EENT: ATNC, PERRL, hearing intact, vision intact Neck: no JVD, supple Respiratory: Present: Decreased Breath Sounds Cardiology: S1S2 Gastrointestinal: normoactive bowel sounds Integumentary: warm and dry Neurologic: alert and oriented x3 Musculoskeletal: other (No edema) Psychiatric: cooperative - Lab 02/25/21 05:14 02/25/21 05:14 Most recent lab results Calcium 8.9 mg/dL (8.4-10.2) 02/25/21 05:14 Urine Creatinine 169.9 mg/dL (0.1-20.0) H 02/24/21 19:24 Urine Sodium 45 mmol/L 02/24/21 19:24 Urine Total Protein 29 mg/dL (5-11.8) H 02/24/21 19:24 Medications & Allergies - Medications Allergies/Adverse Reactions: Allergies No Known Allergies Allergy (Unverified 02/23/21 15:13) Home Medications: Home Medications Medication Instructions Recorded Confirmed Last Taken Type Furosemide [Lasix] 40 mg PO QDAY 02/25/21 02/25/21 Unknown History Lisinopril [Zestril] 5 mg PO QDAY 02/25/21 02/25/21 Unknown History Multivit-Min/Iron Fum/Folic AC 1 each PO QDAY 02/25/21 02/25/21 Unknown History [[id number]-[id number]-[id number] Tablet] Spironolactone [Aldactone] 25 mg PO QDAY 02/25/21 02/25/21 Unknown History allopurinoL [Zyloprim] 100 mg PO QDAY 02/25/21 02/25/21 Unknown History carvediloL [Coreg] 12.5 mg PO BID 02/25/21 02/25/21 Unknown History Active Medications: Generic Name Dose Route Start Last Admin Trade Name Freq PRN Reason Stop Dose Admin Acetaminophen 650 mg 02/23/21 21:01 Acetaminophen 325 Mg Tab PO Q4H PRN Pain MILD(1-3)/Fever >100.5/[place] Aspirin 325 mg 02/24/21 10:00 02/25/21 09:57 Aspirin Ec 325 Mg Tab PO 325 mg QDAY BRIAN Administration Atorvastatin Calcium 40 mg 02/24/21 22:00 02/24/21 23:05 Atorvastatin 40 Mg Tab PO 40 mg QHS BRIAN Administration Famotidine 10 mg 02/25/21 10:00 02/25/21 09:57 Famotidine 10 Mg Tab PO 10 mg BID BRIAN Administration Heparin Sodium (Porcine) 5,000 unit 02/23/21 22:00 02/25/21 09:56 Heparin 5,000 Unit/1 Ml Vial SUB-Q 5,000 unit Q12HR [facility]RIAN Administration Hydromorphone HCl 0.5 mg 02/23/21 21:01 Hydromorphone 1 Mg/1 Ml Inj IV Q3H PRN Pain , Severe (7-10) Sodium Chloride 1,000 mls @ 75 mls/hr 02/23/21 21:15 Nacl 0.9% 1000 Ml IV DIRECT BRIAN Thiamine HCl 100 mg/ Sodium 51 mls @ 100 mls/hr 02/24/21 11:00 02/25/21 10:13 Chloride IV 02/26/21 23:59 100 mls/hr QDAY BRIAN Administration Lorazepam 1 mg 02/24/21 10:31 Lorazepam 2 Mg/Ml Vial IV Q4H PRN Seizures Metoclopramide HCl 10 mg 02/23/21 21:01 Metoclopramide 10 Mg/2 Ml Inj IV Q6H PRN Nausea And Vomiting Ondansetron HCl 4 mg 02/23/21 21:01 Ondansetron 4 Mg/2 Ml Inj IV Q8H PRN Nausea And Vomiting Oxycodone/Acetaminophen 1 tab 02/23/21 21:01 Oxycodone /Acetaminophen 5-325mg Tab PO Q6H PRN Pain, Moderate (4-6) Sodium Chloride 10 ml 02/23/21 22:00 02/25/21 09:59 Sodium Chloride 0.9% 10 Ml Flush Syringe IV 10 ml BID BRIAN Administration Sodium Chloride 10 ml 02/23/21 21:01 Sodium Chloride 0.9% 10 Ml Flush Syringe IV PRN PRN LINE FLUSH
--- NOTE | 2021-02-25 10:39 | Electrocardiograph Report ---
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
[2021-02-25 12:51] VITALS: BP 177/81
--- NOTE | 2021-02-25 15:55 | Discharge Summary ---
Providers - Providers Date of Admission: 02/25/21 10:02 Attending physician: KRYS SOLER MD 02/23/21 21:01 Consult to Physician [CONS] Routine Comment: Consulting Provider: KAVON SWEET Physician Instructions: Reason For Exam: TIA 02/23/21 21:11 Consult to Physician [CONS] Routine Comment: Consulting Provider: MONIE ALVAREZ Physician Instructions: Reason For Exam: josh/ckd 02/24/21 08:34 Physical Therapy Evaluation and Treat [CONS] Routine Comment: Reason For Exam: TIA, left-sided weakness 02/24/21 08:35 Occupational Therapy Evaluate and Treat [CONS] Routine Comment: Reason For Exam: Evaluate and treat Primary care physician: [employer] MANAGER Hospitalization Reason for admission: TIA Condition: Stable Hospital course: 70-year-old -[place] male, very cooperative during my examination apparently was sitting in the ER and became confused. The family noticed slurred speech and left-sided weakness involving both left upper and left lower extremities. EMS was called. As per EMS patient had slurred speech and left- sided weakness. During transport patient improved. More alert and alert Oriented and also able to move left upper and left lower extremity. During my examination patient was able to tell where he is and able to move all 4 extremities and had a clear speech. No chest pain. No exposure to Covid. (1) TIA (transient ischemic attack) Current Visit: Yes Status: Acute Plan to address problem: History suggests a classic transient ischemic attack Echocardiogram ordered for ejection fraction and valve function and rule out any thrombus Carotid duplex scan was canceled because the head CT and neck CT were done which were normal MRI is not necessary because the head CT and neck CT are normal and the symptoms resolved within an hour Patient can be discharged tomorrow after the echocardiogram Needs renal work-up as outpatient (2) Acute kidney injury superimposed on CKD Current Visit: Yes Status: Acute Plan to address problem: Probably underlying CKD IV fluids Nephrology consult (3) Hyponatremia Current Visit: Yes Status: Acute Plan to address problem: IV fluids for now (4) Anemia Current Visit: Yes Status: Chronic Qualifiers: Anemia type: unspecified type Qualified Code(s): D64.9 - Anemia, unspecified Plan to address problem: Anemia work-up and CKD may be contributory (5) DVT prophylaxis Current Visit: Yes Status: Acute Plan to address problem: On heparin and GI prophylaxis 02/24 -Patient was admitted for TIA. CT head, CTA head and neck was unremarkable. MRI head, and echo is pending -Neurology consult appreciated -Hyponatremia is improving -Acute on chronic CKD; nephrology consulted -Metabolic acidosis; improving -Anemia; likely due to CKD. H&H stable, no bleeding 02/25: PATIENT LEFT AMA. I TRIED TO DISCUSS WITH HIM ABOUT MANAGEMENT, HE REFUSED, HAD TAKEN OFF HIS HOSPITAL GOWN AND WEARING HIS HOUSE CLOTHS Disposition: LEFT AGAINST MEDICAL ADVICE Final Discharge Diagnosis (Prints w/discharge instructions): TIA Time spent for discharge: 35 mins Core Measure Documentation - Palliative Care Palliative Care/ Comfort Measures: Not Applicable - Core Measures Any of the following diagnoses?: stroke - Stroke Discharge Requirements Statin for LDL = or >70 mg/dl on DC: Yes Anticoag for atrial fib/atrial flutter: Not Applicable Antithrombotic for ischemic stroke: Yes Exam - Physical Exam Narrative exam: Not in cardiopulmonary distress. The patient appeared well nourished and normally developed. Vital signs as documented. Head exam is unremarkable. No scleral icterus . Neck is without jugular venous distension, thyromegaly, or carotid bruits. Lungs are clear to auscultation. Cardiac exam reveals regular rate and Rhythm. Abdominal exam reveals normal bowel sounds, nontender, no organomegaly. Extremities are nonedematous and both femoral and pedal pulses are normal. KNOTTER HAND: Alert and oriented 3. No focal weakness. - Constitutional Vitals: Temp Pulse Resp BP Pulse Ox 97.6 F 85 16 177/81 95 02/23/21 15:20 02/25/21 12:47 02/25/21 12:47 02/25/21 12:47 02/25/21 12:47 Plan Activity: advance as tolerated Diet: low fat Special Instructions: record daily weights, record daily BP diary, physical therapy, occupational therapy Follow up with: PRIMARY CARE, [Primary Care Provider] - 3-5 Days Prescriptions: AtorvaSTATin [Lipitor] 40 mg PO QHS #30 tab Aspirin [Adult Aspirin] 81 mg PO DAILY #30 tablet.
== END 2021-02-25 15:41 | disposition left against medical advice (07) | DRG 69 ==
LOC: ED 14:10 → 4A 23:31 → OBSVTOIN 02-25 10:02
PROVIDERS: ADMIT Internal Medicine; ATTEND Internal Medicine
DX: G45.9 Transient cerebral ischemic attack, unspecified (principal); N17.9 Acute kidney failure, unspecified; E87.1 Hypo-osmolality and hyponatremia; E87.2 Acidosis; I12.9 Hypertensive chronic kidney disease with stage 1 through stage 4 chronic kidney disease, or unspecified chronic kidney disease; N18.9 Chronic kidney disease, unspecified; D63.1 Anemia in chronic kidney disease; Z82.49 Family history of ischemic heart disease and other diseases of the circulatory system
CPT/HCPCS: 36415; 70450; 70496; 70498; 70551; 71045; 76770; 80048; 80053; 80061; 81001; 82550; 82570; 82607; 82747; 82962; 83550; 83880; 84156; 84300; 84484; 85025; 85610; 85670; 85730; 87086; 93005; 93306; G0378; J1644; J3411; J7030; Q9967